=== PATIENT | male | born 1960 | race Caucasian/White ===

== ENCOUNTER 2023-03-10 15:40 | Outpatient (CLI) | payer OTHER, SELFPAY ==
[2023-03-10 16:01] LABS: Hematocrit 41.8 % (42.0-52.0); Hemoglobin 13.8 g/dL (14.0-18.0); Mean Corpuscular Hemoglobin 32.2 pg (26-34); Mean Corpuscular Volume 97.7 fl (80-100); Mean Platelet Volume 10.1 fl (7.4-10.4); Platelet Count Result 184 k/mm3 (150-375); Red Blood Count 4.28 M/mm3 (4.6-6.20); White Blood Count 11.1 K/mm3 (4.5-10.0)
[2023-03-10 16:11] LABS: Atypical Lymphocytes Present; Giant Platelets Present; Lymphocytes Absolute Manual 8.21 K/mm3 (1.1-4.5); Monocytes Absolute Manual 0.11 K/mm3 (0.1-0.90); Monocytes Percent Manual 1 % (3-9); Neutrophils Percent Manual 25 % (46-73); Platelet Estimate Adequate (Adequate); Schistocytes None Seen (NORMAL); Total Cells Counted 100
[2023-03-10 16:29] LABS: Alanine Aminotransferase 25 U/L (6-50); Albumin Level 4.4 g/dL (3.5-5.1); Alkaline Phosphatase 96 U/L (38-126); Anion Gap 9 mmol/L (8-16); Aspartate Amino Transferase 28 U/L (17-59); Bilirubin,Total 0.6 mg/dL (0.2-1.3); Blood Urea Nitrogen 18 mg/dL (9-20); Carbon Dioxide 30 mmol/L (22-30); Chloride 100 mmol/L (98-107); Estimated Glomerular Filt Rate 56; Glucose 112 mg/dL (65-110); Potassium 4.6 mmol/L (3.4-5.0); Sodium 139 mmol/L (137-145)
== END 2023-03-10 15:41 | disposition home or self-care (01) ==
PROVIDERS: Visit Provider Internal Medicine Hematology & Oncology
DX: C91.10 Chronic lymphocytic leukemia of B-cell type not having achieved remission (principal); D3A.8 Other benign neuroendocrine tumors
CPT/HCPCS: 36415; 80053; 85025

== ENCOUNTER 2023-03-19 15:40 | Outpatient (CLI) | payer OTHER, SELFPAY ==
[2023-03-31 17:23] LABS: Serotonin 47 ng/mL (56-244)
== END 2023-03-19 15:41 | disposition home or self-care (01) ==
LOC: ANHLAB 15:42
PROVIDERS: Visit Provider Internal Medicine Hematology & Oncology
DX: C7A.8 Other malignant neuroendocrine tumors (principal)
CPT/HCPCS: 36415; 84260

== ENCOUNTER 2023-03-31 15:23 | Outpatient (CLI) | payer OTHER, SELFPAY | END 2023-03-31 15:24 | disposition home or self-care (01) | LOC: ANHLAB 15:26 | PROVIDERS: Visit Provider Internal Medicine Hematology & Oncology | DX: C91.10 Chronic lymphocytic leukemia of B-cell type not having achieved remission (principal); C7A.8 Other malignant neuroendocrine tumors | CPT/HCPCS: 36415; 86316; 88184 ==

== ENCOUNTER 2023-10-16 00:37 | Day surgery (SDC) | payer OTHER, SELFPAY ==
[2023-10-05 15:12] VITALS: BMI 27.4
--- NOTE | 2023-10-14 09:46 | SUR.PREOP ---
Patient called regarding upcoming procedure. Reviewed preop instructions, appointment times, and procedure prep.
[2023-10-16 07:44] VITALS: BP 127/81; PULSE 88; RESP 18; TEMP 36.7; O2SAT 100; BMI 26.9
[2023-10-16] MEDS: LACTATED RINGERS 1,000 ML 150 ML IV CONT (08:00)
--- NOTE | 2023-10-16 08:00 | P.HP_ITS ---
History of Present Illness History of Present Illness Consent: Risks, benefits, and alternatives have been discussed and questions answered. Patient agrees to proceed with procedure. Chief complaint: Fam Hx of Colon Ca,neuroendocrine malignancy Narrative: Eran Alves is a 62 year old male Presents for should colonoscopy. Patient's father had colon cancer for this reason patient referred for neoplasia screening colonoscopy. 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 Follow-up endoscopy revealed complete excision later that year. Patient reports his current weight appetite and bowel movements are normal. He denies abdominal pain. He denies bleeding. He is followed by Dr. Hawthorne in oncology for CLL , currently stable. Review of Systems Review of Systems: Review of systems is noncontributory. [facility] Social History Social History Smoking status: Never smoker Alcohol use details: rarely Substance use type: does not use Living arrangements: with family Spiritual care concerns: No Meds Home Medications and Allergies Home Medications Medication Instructions Recorded Confirmed Type naproxen sodium 220 mg capsule 220 mg PO QID PRN Pain 10/06/23 10/16/23 History (Aleve) Allergies Allergy/AdvReac Type Severity Reaction Status Date / Time No Known Allergies Allergy Verified 10/16/23 07:43 Vital Signs Vital Signs - 24 hr 10/16/23 07:44 Temperature 98.0 F Pulse Rate 88 Respiratory Rate 18 Blood Pressure 127/81 Pulse Oximetry 100 Oxygen Delivery Room Air Exam Narrative: Physical exam reveals patient to be alert. Vital signs stable. HEENT exam is unremarkable. Patient is anicteric. Lungs are clear to auscultation and percussion. Heart is without murmur or extra sounds. Abdomen bowel sounds are present soft nontender with no organomegaly. Digital external rectal exam is normal. Assessment and Plan Assessment and plan (1) Family history of colon cancer in father: Code(s): Z80.0 - Family history of malignant neoplasm of digestive organs Status: Acute Assessment and Plan: Patient's father had colon cancer. For this reason screening exam at least every 5 years is encouraged. 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
--- NOTE | 2023-10-16 08:31 | P.PNAN_ITS ---
Anes - Initial Pre Proc Eval Procedure: Operation Date: 10/16/23 08:30 Proposed Procedures p Colonoscopy - Srini Mccord MD Date/Time: 10/16/23 08:31 Surgeon: Srini Mccord MD Pre Op Diagnosis: Fam Hx of Colon Ca,neuroendocrine malignancy Patient Data Age: 62 Gender: M Height: 1.73 m Weight: 80.4 kg Last Vital Signs Temp 98.0 F 10/16/23 07:44 Pulse 88 10/16/23 07:44 Resp 18 10/16/23 07:44 BP 127/81 10/16/23 07:44 Pulse Ox 100 10/16/23 07:44 O2 Del Method Room Air 10/16/23 07:44 Allergies Allergy/AdvReac Type Severity Reaction Status Date / Time No Known Allergies Allergy Verified 10/16/23 07:43 Home Medications Medication Instructions Recorded Confirmed Type naproxen sodium 220 mg capsule 220 mg PO QID PRN Pain 10/06/23 10/16/23 History (Aleve) Patient hx anesthesia problems: none Family hx anesthesia problems: none Results Review: All pre-operative results and documents have been reviewed as part of the pre- operative evaluation. PMFSH Social History Social History Smoking status: Never smoker Alcohol use details: rarely Substance use type: does not use Living arrangements: with family Spiritual care concerns: No Anes - Eval Final PreProcedure Day of Procedure 10/16/23 08:31 Patient weight: normal Heart: regular rate and rhythm Lungs: clear to auscultation Airway: Mallampati scale class II Neurological: alert and oriented Last oral intake: >/= 8 hours ASA classification: II Emergent: no Anesthetic plan: proceed Anesthesia type and monitoring: general GIVS and standard monitoring Results Review: All pre-operative results and documents have been reviewed as part of the pre- operative evaluation. Informed Consent: The patient's anesthetic plan and its attendant risks and benefits were discussed with the patient/family/POA. Questions were solicited and answers provided to the satisfaction of the patient/family/POA.
[2023-10-16 08:56] VITALS: BP 109/68; PULSE 62; RESP 17; O2SAT 98
[2023-10-16 09:06] VITALS: BP 113/67; PULSE 61; RESP 22; O2SAT 98
[2023-10-16 09:16] VITALS: BP 114/82; PULSE 62; RESP 25; O2SAT 98
== END 2023-10-16 09:29 | disposition home or self-care (01) ==
PROVIDERS: Visit Provider Internal Medicine Gastroenterology
PROC: 0DJD8ZZ Inspection of Lower Intestinal Tract, Via Natural or Artificial Opening Endoscopic (ICD-10-PCS; CPT 45378; principal; 2023-10-16 08:30)
DX: Z12.11 Encounter for screening for malignant neoplasm of colon (principal); K63.5 Polyp of colon; C91.10 Chronic lymphocytic leukemia of B-cell type not having achieved remission; Z80.0 Family history of malignant neoplasm of digestive organs; Z85.030 Personal history of malignant carcinoid tumor of large intestine
CPT/HCPCS: 45380; 88305; J7120

== ENCOUNTER 2023-10-26 15:34 | Outpatient (CLI) | payer OTHER, SELFPAY ==
[2023-10-26 16:04] LABS: Basophils Absolute Auto 0.1 K/mm3 (0.0-0.1); Basophils Percent Auto 0.5 % (0.2-1.2); Eosinophils Absolute Auto 0.1 K/mm3 (0-0.3); Eosinophils Percent Auto 0.7 % (0-4.4); Hematocrit 40.4 % (42.0-52.0); Hemoglobin 13.9 g/dL (14.0-18.0); Immature Granulocyte Absolute 0.02 K/mm3 (0.00-0.031); Immature Granulocyte Percent A 0.2 % (0-0.5); Lymphocytes Absolute Auto 8.16 K/mm3 (0.9-3.2); Lymphocytes Percent Auto 73.9 % (18.3-44.2); Mean Corpuscular HGB Conc 34.4 g/dl (32-36); Mean Corpuscular Hemoglobin 32.9 pg (26-34); Mean Corpuscular Volume 95.5 fl (80-100); Monocytes Absolute Auto 0.5 K/mm3 (0.1-0.6); Monocytes Percent Auto 4.5 % (2.6-8.5); Neutrophils Absolute Auto 2.2 K/mm3 (1.3-6.7); Neutrophils Percent Auto 20.2 % (45.5-73.1); Platelet Count Result 188 k/mm3 (150-375); Red Blood Count 4.23 M/mm3 (4.6-6.20); Red Cell Distribution Width 11.9 % (11.5-14.5)
[2023-10-26 16:13] LABS: Atypical Lymphocytes Present; Platelet Estimate Adequate (Adequate); Schistocytes None Seen (NORMAL)
[2023-10-26 17:44] LABS: Alanine Aminotransferase 39 U/L (6-50); Albumin Level 4.3 g/dL (3.5-5.1); Alkaline Phosphatase 91 U/L (38-126); Anion Gap 7 mmol/L (8-16); Aspartate Amino Transferase 36 U/L (17-59); Bilirubin,Total 0.7 mg/dL (0.2-1.3); Blood Urea Nitrogen 15 mg/dL (9-20); Calcium 9.4 mg/dL (8.4-10.2); Carbon Dioxide 30 mmol/L (22-30); Chloride 101 mmol/L (98-107); Estimated Glomerular Filt Rate 56; Glucose 100 mg/dL (65-110); Potassium 4.1 mmol/L (3.4-5.0); Sodium 138 mmol/L (137-145)
[2023-11-09 11:08] LABS: Serotonin 186 ng/mL (56-244)
== END 2023-10-26 15:35 | disposition home or self-care (01) ==
LOC: ANHLAB 15:36
PROVIDERS: Visit Provider Internal Medicine Hematology & Oncology
DX: C7A.8 Other malignant neuroendocrine tumors (principal); C91.10 Chronic lymphocytic leukemia of B-cell type not having achieved remission
CPT/HCPCS: 36415; 80053; 84260; 85025; 88184

== ENCOUNTER 2024-04-21 15:33 | Outpatient (CLI) | payer OTHER, SELFPAY ==
[2024-04-21 15:54] LABS: Hematocrit 40.2 % (42.0-52.0); Hemoglobin 13.4 g/dL (14.0-18.0); Mean Corpuscular HGB Conc 33.3 g/dl (32-36); Mean Corpuscular Hemoglobin 32.4 pg (26-34); Mean Corpuscular Volume 97.1 fl (80-100); Mean Platelet Volume 10.1 fl (7.4-10.4); Platelet Count Result 182 k/mm3 (150-375); Red Blood Count 4.14 M/mm3 (4.6-6.20); Red Cell Distribution Width 12.1 % (11.5-14.5); White Blood Count 11.4 K/mm3 (4.5-10.0)
[2024-04-21 16:05] LABS: Atypical Lymphocytes Present; Giant Platelets Present; Lymphocytes Absolute Manual 7.63 K/mm3 (1.1-4.5); Monocytes Absolute Manual 0.57 K/mm3 (0.1-0.90); Monocytes Percent Manual 5 % (3-9); Neutrophils Percent Manual 28 % (46-73); Platelet Estimate Adequate (Adequate); Schistocytes None Seen; Total Cells Counted 100
[2024-04-21 17:44] LABS: Alanine Aminotransferase 27 U/L (6-50); Albumin Level 4.1 g/dL (3.5-5.1); Alkaline Phosphatase 92 U/L (38-126); Anion Gap 5 mmol/L (4-12); Aspartate Amino Transferase 27 U/L (17-59); Bilirubin,Total 0.7 mg/dL (0.2-1.3); Blood Urea Nitrogen 23 mg/dL (9-20); Calcium 8.9 mg/dL (8.4-10.2); Carbon Dioxide 28 mmol/L (22-30); Chloride 103 mmol/L (98-107); Estimated Glomerular Filt Rate 56; Glucose 99 mg/dL (65-110); Potassium 4.1 mmol/L (3.4-5.0); Sodium 136 mmol/L (137-145)
[2024-04-29 14:57] LABS: Serotonin 127 ng/mL (56-244)
== END 2024-04-21 15:34 | disposition home or self-care (01) ==
LOC: ANHLAB 15:36
PROVIDERS: Visit Provider Internal Medicine Hematology & Oncology
DX: C7A.8 Other malignant neuroendocrine tumors (principal)
CPT/HCPCS: 36415; 80053; 84260; 85025; 86316

== ENCOUNTER 2024-10-19 15:40 | Outpatient (CLI) | payer OTHER, SELFPAY ==
[2024-10-19 15:58] LABS: Basophils Absolute Auto 0.1 K/mm3 (0.0-0.1); Basophils Percent Auto 0.6 % (0.2-1.2); Eosinophils Absolute Auto 0.1 K/mm3 (0-0.3); Eosinophils Percent Auto 1.6 % (0-4.4); Hematocrit 37.8 % (42.0-52.0); Hemoglobin 12.7 g/dL (14.0-18.0); Immature Granulocyte Absolute 0.02 K/mm3 (0.00-0.031); Immature Granulocyte Percent A 0.2 % (0-0.5); Lymphocytes Absolute Auto 5.66 K/mm3 (0.9-3.2); Lymphocytes Percent Auto 67.5 % (18.3-44.2); Mean Corpuscular HGB Conc 33.6 g/dl (32-36); Mean Corpuscular Hemoglobin 32.6 pg (26-34); Mean Corpuscular Volume 96.9 fl (80-100); Mean Platelet Volume 9.6 fl (7.4-10.4); Monocytes Absolute Auto 0.5 K/mm3 (0.1-0.6); Monocytes Percent Auto 5.5 % (2.6-8.5); Neutrophils Absolute Auto 2.1 K/mm3 (1.3-6.7); Neutrophils Percent Auto 24.6 % (45.5-73.1); Platelet Count Result 181 k/mm3 (150-375); Red Cell Distribution Width 12.2 % (11.5-14.5); White Blood Count 8.4 K/mm3 (4.5-10.0)
[2024-10-19 16:05] LABS: Atypical Lymphocytes Present; Platelet Estimate Adequate (Adequate); Schistocytes None Seen
[2024-10-19 18:39] LABS: Alanine Aminotransferase 52 U/L (6-50); Albumin Level 3.8 g/dL (3.5-5.1); Alkaline Phosphatase 101 U/L (38-126); Anion Gap 6 mmol/L (4-12); Aspartate Amino Transferase 62 U/L (17-59); Bilirubin,Total 0.7 mg/dL (0.2-1.3); Blood Urea Nitrogen 22 mg/dL (9-20); Calcium 8.4 mg/dL (8.4-10.2); Carbon Dioxide 29 mmol/L (22-30); Chloride 102 mmol/L (98-107); Estimated Glomerular Filt Rate 51; Glucose 128 mg/dL (65-110); Potassium 4.4 mmol/L (3.4-5.0); Sodium 137 mmol/L (137-145)
== END 2024-10-19 15:41 | disposition home or self-care (01) ==
LOC: ANHLAB 15:41
PROVIDERS: Visit Provider Internal Medicine Hematology & Oncology
DX: C7A.8 Other malignant neuroendocrine tumors (principal)
CPT/HCPCS: 36415; 80053; 84260; 85025; 86316

== ENCOUNTER 2025-02-01 15:41 | Outpatient (CLI) | payer OTHER, SELFPAY ==
[2025-02-01 15:57] LABS: Basophils Absolute Auto 0.1 K/mm3 (0.0-0.1); Basophils Percent Auto 0.7 % (0.2-1.2); Eosinophils Absolute Auto 0.3 K/mm3 (0-0.3); Eosinophils Percent Auto 2.4 % (0-4.4); Hematocrit 40.9 % (42.0-52.0); Hemoglobin 13.8 g/dL (14.0-18.0); Immature Granulocyte Absolute 0.03 K/mm3 (0.00-0.031); Immature Granulocyte Percent A 0.3 % (0-0.5); Lymphocytes Absolute Auto 6.71 K/mm3 (0.9-3.2); Mean Corpuscular HGB Conc 33.7 g/dl (32-36); Mean Corpuscular Hemoglobin 32.2 pg (26-34); Mean Corpuscular Volume 95.6 fl (80-100); Mean Platelet Volume 10.1 fl (7.4-10.4); Monocytes Absolute Auto 0.6 K/mm3 (0.1-0.6); Monocytes Percent Auto 5.8 % (2.6-8.5); Neutrophils Absolute Auto 2.7 K/mm3 (1.3-6.7); Neutrophils Percent Auto 25.8 % (45.5-73.1); Platelet Count Result 183 k/mm3 (150-375); Red Blood Count 4.28 M/mm3 (4.6-6.20); Red Cell Distribution Width 12.2 % (11.5-14.5); White Blood Count 10.3 K/mm3 (4.5-10.0)
[2025-02-01 16:01] LABS: Platelet Estimate Adequate (Adequate); Schistocytes None Seen
[2025-02-01 16:04] LABS: Atypical Lymphocytes Present
[2025-02-01 16:41] LABS: Iron 87 ug/dL (49-181)
[2025-02-01 16:50] LABS: Percent Iron Saturation 25 % (20-50)
--- OUTSIDE RECORDS SUMMARY | 2025-02-01 17:19 | XMS_ITS | Clinical Summary ---
Author Organization [facility] [employer] Address [address] [place] [address] Care Team Providers Care Cook Tortilla Name Role Phone Betsy Rossi MD Primary Care Provider [phone] Allergies No known active allergies Medications multivit-min/FA/lyc open/lutein (MEN 50 PLUS MULTIVITAMIN ORAL) 05/30/2021 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 Rectal bleeding 09/13/2019 Family history of colon cancer 08/13/2018 Encounters Date Type Department Care Team Description 01/17/2025 External Device Data ST[facility] ABSTRACTION Provider, Abstract 12/21/2024 External Device Data [facility] ABSTRACTION Provider, Abstract 12/20/2024 External Device Data [facility] ABSTRACTION Provider, Abstract 12/13/2024 External Device Data ST[facility] ABSTRACTION Provider, Abstract 11/07/2024 2:15 PM LEARNING DISABILITIES TEACHER Office Visit [facility] Oncology and Hematology - [place] [address] [place] [address] Desmond Hawthorne MD Neuroendocrine malignancy (CMS/HCC) (Primary Dx); Chronic anemia 11/04/2024 Orders Only [facility] Oncology and Hematology [place] [address] [place] [address] Desmond Hawthorne MD from Last 3 Months Immunizations Immunization Administration Dates Next Due (ADACEL/BOOSTRIX)(10 YR UP) TDAP VACCINE, 0.5ML, IM 09/13/2019 (PNEUMOVAX 23)(50 YRS UP) PN EUMOCOCCAL POLYSACCHARIDE (PPV23) 0.5 ML, IM 09/23/2018 (SHINGRIX)(50 YRS UP) ZOSTER VACCINE RECOMBINANT, 0.5 ML, IM 07/31/2021,05/29/2021 INFLUENZA VACCINE QUADRIVALE NT 3 YR UP PF IM 09/11/2017 INFLUENZA VACCINE QUADRIVALENT 6 MOS UP IM 08/28,08/31/2019,09/02/2018 INFLUENZA VACCINE QUADRIVALE NT 6 MOS UP PF IM 09/04/2023,08/28/2020 INFLUENZA VACCINE TRIVALENT SPLIT VIRUS, (6 MOS UP), 0.5ML (PF), IM 09/07/2024 Family History Medical History Relation Name Comments No Known Problems Brother No Known Problems Daughter Colon Cancer Father cause of Stroke Maternal Grandfather Unknown Maternal Grandmother Lymphoma Mother Migraines Mother Stroke Mother Unknown Paternal Grandfather Diabetes Paternal Grandmother No Known Problems Son Relation Name Status Comments Brother Alive Daughter Alive Father Maternal Grandfather Maternal Grandmother Mother Paternal Grandfather Paternal Grandmother Son Alive Social History Tobacco Use Types Packs/Day Years Used Date Smoking Tobacco: Never Smokeless Tobacco: Never Tobacco Cessation:Counseling Given: Not Answered Alcohol Use Standard Drinks/Week Comments Yes 0 (1 standard drink = 0.6 oz pur e alcohol) rarely Sex and Gender Information Value Date Recorded Sex Assigned at Not on file Legal Sex Male 12:10 PM CDT Gender Identity Not on file Sexual Orientation Not on file Last Filed Vital Signs Vital Sign Reading Time Taken Comments Blood Pressure 154/96 11/07/2024 2:16 PM LEARNING DISABILITIES TEACHER Pulse 72 11/07/2024 2:10 PM LEARNING DISABILITIES TEACHER Temperature 36.8 C (98.2 F) 11/07/2024 2:10 PM LEARNING DISABILITIES TEACHER Respiratory Rate 16 11/07/2024 2:10 PM LEARNING DISABILITIES TEACHER Oxygen Saturation 95% 11/07/2024 2:10 PM LEARNING DISABILITIES TEACHER Inhaled Oxygen Concentration - - Weight 85.6 kg (188 lb 12.8 oz) 11/07/2024 2:10 PM LEARNING DISABILITIES TEACHER Height 172.7 cm (5' 8 ) 07/22/2022 9:32 AM CDT Body Mass Index 28.71 07/22/2022 9:32 AM CDT Plan of Treatment Upcoming Encounters Date Type Department Care Team (Late st Contact Info) Description 02/14/2025 3:45 PM CDT Office Visit [facility] Oncology and Hematology [facility] [address] [facility] [address] [place] [address] Desmond Hawthorne MD [address] [place] [address] Health Maintenance Due Date Last Done Comments Pre-Diabetes and Diabetes Screening 1960 FIT-DNA Q 3 years 2004 Flex Sig/CT Colonography Q 5 years 2004 PNEUMOCOCCAL VACCINE 50+ YEA RS (2 of 2 - PCV) 09/23/2019 09/23/2018 RSV VACCINE (60+ or ) (1 - Risk 60-74 years 1-dose series) 2019 FIT/FOBT Q 1 year 09/13/2020 09/13/2019 COLORECTAL SCREENING 04/15/2024 10/16/2023, 11/07/2019, 09/29/2019, Additional history exists Colorectal Cancer Screening 04/15/2024 Preventative Visit- Commercial 11/30/2024 DTAP/TDAP/TD VACCINES (2 - T d or Tdap) 09/13/2029 09/13/2019 ZOSTER VACCINE Completed 07/31/2021, 05/29/2021 INFLUENZA VACCINE Completed 09/07/2024, , 08/28/2021, Additional history exists Procedures Procedure Name Priority Date/Time Associated Diagnosis Comments COLONOSCOPY REPORT Routine 10/16/2023 11 :38 AM LEARNING DISABILITIES TEACHER POC OCCULT BLOOD 1 CARD Routine 09/13/2019 11:59 AM CDT Rectal bleeding from Last 3 Months or Most Recently Relevant to Health Maintenance Results * COLONOSCOPY REPORT (10/16/2023 11:38 AM LEARNING DISABILITIES TEACHER) us Desmond Hawthorne MD GI PROCEDURE ORDERABLES Final R esult * (ABNORMAL) POC OCCULT BLOOD 1 CARD (09/13/2019 11:59 AM CDT) OCCULT BLOOD 1 CARD POC Positive(A ) Negative [facility] [place] QC Pass Pass [facility] CARD LOT NUMBER POC [id number] [facility] [place] C[place] EXP[place] DATE POC 01/2020 [facility] [place] DEVELOPER [place] NUMBER POC [id number] [facility] DEVELOPER EXPIRATION DATE POC 04/2022 [facility] [employer] STOOL SPECIMEN / Unknown 09/13/2019 11:59 AM CDT us Melida Zavala NP POINT OF CARE TESTING F inal Result [facility] CLIA# [id number] [address] [address] from Last 3 Months or Most Recently Relevant to Health Maintenance Insurance ALLEGIANCE OPEN ACCESS ALLEGIANCE OPEN ACCESS * Guarantor: [employer] Account Type Relation to Patient Date of Phone Billing Address Corporate Employer ATTN: ELIZABETH JOYNER [address] [address] Advance Directives For more information, please contact: [phone] * Full Code (Latest Code Status on File) Date Activated Date Inactivated Comments 11/07/2019 11:56 AM 11/07/2019 5:42 PM Care Teams Cook Tortilla Relationship Specialty Start Date End Date Betsy Rossi MD [facility] [place] [address] PCP - General Family Practice 10/06/22
--- OUTSIDE RECORDS SUMMARY | 2025-02-01 17:19 | XMS_ITS | Referral Summary ---
Author Organization [facility] [address] [facility] Address [address] [place] [address] Care Team Providers Care Embosser Apprentice Name Role Phone No, Physician Primary Care Provider [phone] Allergies No known active allergies Medications No known medications Active Problems Problem Noted Date Diagnosed Date Elevated LDL cholesterol level 02/12/2021 CASTILLO (dyspnea on exertion) 02/12/2021 Elevated serum creatinine 02/12/2021 CLL (chronic lymphocytic leukemia) 01/22/2021 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 Social History Tobacco Use Types Packs/Day Years Used Date Smoking Tobacco: Never Personal Safety Answer Date Recorded Getting School Help Needed Not on file 01/30 Sex and Gender Information Value Date Recorded Sex Assigned at Not on file Legal Sex Male 12:14 PM CDT Gender Identity Not on file Sexual Orientation Not on file Last Filed Vital Signs Vital Sign Reading Time Taken Comments Blood Pressure 128/78 06/21/2022 2:38 PM CDT Pulse 82 06/21/2022 2:38 PM CDT Temperature 36.2 C (97.2 F) 06/21/2022 2:38 PM CDT Respiratory Rate 18 06/21/2022 2:38 PM CDT Oxygen Saturation 96% 06/21/2022 2:38 PM CDT Inhaled Oxygen Concentration - - Weight 74.8 kg (165 lb) 06/21/2022 2:38 PM CDT Height 172.7 cm (5' 8 ) 06/21/2022 2:38 PM CDT Body Mass Index 25.09 06/21/2022 2:38 PM CDT Plan of Treatment Not on file Insurance [employer] ALLEGIANCE Care Teams Embosser Apprentice Relationship Specialty Start Date End Date No, Physician PCP - General 06/21/22
--- OUTSIDE RECORDS SUMMARY | 2025-02-01 17:19 | XMS_ITS | Clinical Summary ---
Author Organization [facility] [address] [facility] Address [address] [place] [address] Care Team Providers Care Bench Press Operator Name Role Phone No, Physician Primary Care Provider [phone] Allergies No known active allergies Medications No known medications Active Problems Problem Noted Date Diagnosed Date Elevated LDL cholesterol level 02/12/2021 CASTILLO (dyspnea on exertion) 02/12/2021 Elevated serum creatinine 02/12/2021 CLL (chronic lymphocytic leukemia) 01/22/2021 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 Surgical History Surgery Date Site/Laterality Comments COLON SURGERY Medical History Medical History Date Comments Hyperlipidemia Social History Tobacco Use Types Packs/Day Years Used Date Smoking Tobacco: Never Personal Safety Answer Date Recorded Getting School Help Needed Not on file 01/30 Sex and Gender Information Value Date Recorded Sex Assigned at Not on file Legal Sex Male 12:14 PM CDT Gender Identity Not on file Sexual Orientation Not on file Obstetrics History Last Filed Vital Signs Vital Sign Reading [...] 06/21/2022 2:38 PM CDT Plan of Treatment Health Maintenance Due Date Last Done Comments Colon Cancer Screening-Colonoscopy 1960 Depression Screening 1959 Fall Risk Assessment 1959 Hepatitis C Screening 1960 Prostate Cancer Screening-PSA 1959 Hepatitis B Screening 1977 Pneumococcal vaccine 65+ (2 of 2 - PCV) 09/23/2019 09/23/2018 Covid-19 Vaccine (4 - 2023-2 5 season) 2024 11/09/2021, 03/17/2021, 02/24/2021 Influenza Vaccine (#1) 2024 , 08/28/2020, 08/31/2019, Additional history exists Abdominal Aortic Aneurysm (A AA) Screen 2024 Well Visit 65+ 2024 DTaP/Tdap/Td Vaccine (2 - Td or Tdap) 09/13/2029 09/13/2019 Zoster Vaccine Completed 07/31/2021, 05/29/2021 Insurance [employer] ALLEGIANCE Care Teams Bench Press Operator Relationship Specialty Start Date End Date No, Physician PCP - General 06/21/22
[2025-02-01 17:54] LABS: Folic Acid 18.2 ng/mL (2.76->20)
== END 2025-02-01 15:42 | disposition home or self-care (01) ==
PROVIDERS: Visit Provider Internal Medicine Hematology & Oncology
DX: C7A.8 Other malignant neuroendocrine tumors (principal)
CPT/HCPCS: 36415; 82607; 82728; 82746; 83540; 83550; 84260; 85025; 86316

== ENCOUNTER 2025-02-14 15:34 | Outpatient (CLI) | payer OTHER, SELFPAY ==
[2025-02-14 15:48] LABS: Blood Urea Nitrogen 28 mg/dL (8-26); Carbon Dioxide 26 mmol/L (22-30); Chloride 102 mmol/L (98-109); Estimated Glomerular Filt Rate 51; Glucose 111 mg/dL (70-105); Ionized Calcium (POC) 1.21 mmol/L (1.11-1.31); Potassium 4.3 mmol/L (3.5-4.9); Sodium 139 mmol/L (138-146)
[2025-02-14 16:29] LABS: Alanine Aminotransferase 27 U/L (6-50); Albumin Level 4.3 g/dL (3.5-5.1); Alkaline Phosphatase 93 U/L (38-126); Anion Gap 8 mmol/L (4-12); Aspartate Amino Transferase 40 U/L (17-59); Bilirubin,Total 0.4 mg/dL (0.2-1.3); Blood Urea Nitrogen 30 mg/dL (9-20); Calcium 9.1 mg/dL (8.4-10.2); Carbon Dioxide 28 mmol/L (22-30); Chloride 101 mmol/L (98-107); Estimated Glomerular Filt Rate 55; Glucose 115 mg/dL (65-110); Potassium 4.5 mmol/L (3.4-5.0); Sodium 137 mmol/L (137-145)
--- OUTSIDE RECORDS SUMMARY | 2025-02-14 17:30 | XMS_ITS | Encounter Summary ---
Author Organization [facility] Address [address] [place] [address] Care Team Providers Care Beaming Inspector Name Role Phone Betsy Rossi MD Primary Care Provider [phone] Reason for Visit * Reason Comments Cancer Follow Up Encounter Details Date Type Department Care Team (Late st Contact Info) Description 02/14/2025 3:45 PM CDT Office Visit [facility] Oncology and Hematology - [place] [address] [facility] [address] [place] [address] Desmond Hawthorne MD [address] [place] [address] Neuroendocrine malignancy (CMS/HCC) (Primary Dx) Social History Tobacco Use Types Packs/Day Years Used Date Smoking Tobacco: Never Smokeless Tobacco: Never Alcohol Use Standard Drinks/Week Comments Yes 0 (1 standard drink = 0.6 oz pur e alcohol) rarely Sex and Gender Information Value Date Recorded Sex Assigned at Not on file Legal Sex Male 12:10 PM CDT Gender Identity Not on file Sexual Orientation Not on file documented as of this encounter Last Filed Vital Signs Vital Sign Reading Time Taken Comments Blood Pressure 137/89 02/14/2025 3:45 PM CDT Pulse 71 02/14/2025 3:45 PM CDT Temperature 36.7 C (98 F) 02/14/2025 3:45 PM CDT Respiratory Rate 16 02/14/2025 3:45 PM CDT Oxygen Saturation 96% 02/14/2025 3:45 PM CDT Inhaled Oxygen Concentration - - Weight 84.5 kg (186 lb 3.2 oz) 02/14/2025 3:45 P M CDT Height - - Body Mass Index 28.31 07/22/2022 9:32 AM CDT documented in this encounter Progress Notes * Desmond Hawthorne MD - 02/14/2025 4:13 PM CDT HEMATOLOGY / ONCOLOGY PROGRESS NOTE Patient Identification: Name: Eran Alves Age: 64 y.o. Sex: male : 1960 DIAGNOSIS Well-differentiated neuroendocrine tumor status post colonoscopy on September 29, 2019. Repeat colonoscopy November 07, 2019 showed no evidence of malignancy. Chronic lymphocytic leukemia status post flow cytometric analysis performed on October 26, 2023. CURRENT TREATMENT Surveillance TREATMENT HISTORY Colonoscopy done on October 16 showed hyperplastic polyps. SUBJECTIVE Patient came to the office for follow-up visit. He denies any night sweats fever chills and weight loss. Denies any new lumps bumps in lymphadenopathy. No other new complaints. Review of system Constitutional: denies fevers, sweats, denies any tiredness and fatigue, weight and appetite stable HEENT: denies sinus congestion, hearing or vision problems Respiratory: denies cough, dyspnea, wheeze Cardiovascular: denies chest pain, exertional chest pressure/discomfort, nausea, syncope, shortnessof breath GI: denies constipation, diarrhea, dsyphagia, reflux symptoms, vomiting, melena : denies dysuria, frequency, incontinence, urgency Integumentary system: no lymphadenopathy, sweats, flushing Musculoskeletal: denies: myalgia, arthralgia Neurological: denies blurry or disturbed vision, numbness/weakness, dizziness Skin: No lumps, bumps or rashes. 12 point review of system was reviewed Objective: Vital signs in last 24 hours: As per nursing note Exam: General appearance: alert, cooperative, no distress, appears stated age Head: normocephalic, without obvious abnormality, atraumatic Eyes: conjunctivae/corneas clear, EOM's intact Ears: normal external ear canals AU Nose: Nares normal. Septum midline. Mucosa normal. No drainage or sinus tenderness Throat: Lips, mucosa, and tongue normal. Teeth and gums normal Neck: supple, symmetrical, trachea midline. Lungs: clear to auscultation bilaterally Heart: regular rate and rhythm, S1, S2 normal, no murmur, click, rub or gallop Abdomen: soft, non-tender. Bowel sounds normal. No masses, No organomegaly Extremities: extremities normal, atraumatic, no cyanosis or edema Skin: Skin color, texture, turgor normal. No rashes or lesions Lymph nodes: No palpable lymphadenopathy Neuro: No obvious focal deficit Exam as above PATH LABS CBC from December 27, 2019 showed WBC 12.5 hemoglobin 13.4 platelet 221,000 lymphocytes 79% neutrophils 16% chromogranin 65 serotonin 124 Labs from March 10 showed creatinine 1.3 total bilirubin 0.6 WBC 11.1 hemoglobin 13.8 platelet 184,000 neutrophils 25% lymphocytes 74% Labs from October 26 showed WBC 11.0 hemoglobin 13.9 platelet 188,000 neutrophils 20% Vercyte 73% creatinine 1.3 Labs from April 21 showed WBC 11.4 hemoglobin 13.4 platelet 1 82,000 lymphocyte 28% lymphocyte 67% creatinine 1.3 serotonin 127 chromogranin 186 Labs from October 19 showed ferritin 902 chromogranin 308 hemoglobin 12.7 WBC 8.4 platelet 181,024% neutrophils 67% lymphocytes creatinine 1.4 GFR 51 AST 62 ALT 52 Labs from February 01 showed WBC 10.3 hemoglobin 13.8 platelet 183,000 neutrophils 25% lymphocyte 65% creatinine 1.4 iron 87 iron saturation 25 ferritin 51 vitamin B12 734 Chromogranin 170 serotonin 66 Assessment: Plan: Patient Active Problem List Diagnosis Date Noted Adjustment disorder with mixed anxiety and depressed mood 08/27/2022 Elevated LDL cholesterol level 02/12/2021 Elevated serum creatinine 02/12/2021 CASTILLO (dyspnea on exertion) 02/12/2021 CLL (chronic lymphocytic leukemia) (CMS/HCC) 01/22/2021 Benign neuroendocrine neoplasm (CMS/HCC) 12/21/2019 Rectal bleeding 09/13/2019 Family history of colon cancer 08/13/2018 Well-differentiated neuroendocrine tumor status post colonoscopy on September 29, 2019. Colonoscopy showed adenomatous polyp as well as multiple foci of high- grade dysplasia/well-differentiated neuroendocrine tumor. Repeat colonoscopy on November 07, 2019 showed no further evidence of malignancy. Patient is asymptomatic. Labs showed normal chromogranin and serotonin. No evidence of relapse at disease. CLL. WBC stable. Patient has no lymphadenopathy on exam. No indication to treat CLL. Anemia secondary to chronic kidney disease. Iron and B12 level came back normal. Hemoglobin has improved. Elevated liver enzymes. Results are pending today. Recommended regular exercise and weight loss. Follow-up in 6 months. Follow-up in 6 months 02/14/2025 Desmond Hawthorne MD documented in this encounter Plan of Treatment Upcoming Encounters Date Type Department Care Team (Late st Contact Info) Description 08/23/2025 3:30 PM CDT Office Visit [facility] Oncology and Hematology [facility] [address] [place] [address] Desmond Hawthorne MD [address] [place] [address] Scheduled Orders Name Type Priority Associated Diagnoses Orde r Schedule CBC WITH DIFFERENTIAL Lab Stat Neuroendocrine malignancy (CMS/HCC) Expected: 08/17/2025, Expires: 02/14/2026 COMPREHENSIVE METABOLIC PANEL Lab Stat Neuroendocrine malignancy (CMS/HCC) Expected: 08/17/2025, Expires: 02/14/2026 SEROTONIN LEVEL Lab Routine Neuroendocrine malignancy (CMS/HCC) Expected: 08/17/2025, Expires: 02/14/2026 CHROMOGRANIN A Lab Routine Neuroendocrine malignancy (CMS/HCC) Expected: 08/17/2025, Expires: 02/14/2026 documented as of this encounter Visit Diagnoses Diagnosis Neuroendocrine malignancy (CMS/HCC)- Primary Other malignant neoplasm without specification of site documented in this encounter Additional Health Concerns Assessment Noted Time PHQ-9 Depression Total Score: 2 10/06/20 3:00 PM HAND SIZER documented as of this encounter Care Teams Beaming Inspector Relationship Specialty Start Date End Date Betsy Rossi MD [address] [place] [address] PCP - General Family Practice 10/06/22 documented as of this encounter
--- OUTSIDE RECORDS SUMMARY | 2025-02-14 17:30 | XMS_ITS | Clinical Summary ---
Author Organization [facility] [employer] [place] Address [address] [address] Care Team Providers Care Chronic Disease Manager Name Role Phone Betsy Rossi MD Primary Care Provider Allergies No known active allergies Medications multivit-min/FA/l ycopen/lutein (MEN 50 PLUS MULTIVITAMIN ORAL) 05/30/2021 Active TURMERIC ORAL Take by mouth daily. 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 Rectal bleeding 09/13/2019 Family history of colon cancer 08/13/2018 Encounters Date Type Department Care Team Description 02/14/2025 3:45 PM CDT Office Visit [facility] Oncology and Hematology [facility] [address] [place] [address] Desmond Hawthorne MD Neuroendocrine malignancy (CMS/HCC) (Primary Dx) 02/14/2025 Orders Only [facility] Oncology and Hematology [facility] [address] [place] [address] Desmond Hawthorne MD 02/04/2025 External Device Data STL ABSTRACTION Provider, Abstract 02/03/2025 External Device Data STL ABSTRACTION Provider, Abstract 02/02/2025 Orders Only [facility] Oncology and Hematology - [facility] [address] [place] [address] Desmond Hawthorne MD 01/17/2025 External Device Data STL ABSTRACTION Provider, Abstract 12/21/2024 External Device Data STL ABSTRACTION Provider, Abstract 12/20/2024 External Device Data STL ABSTRACTION Provider, Abstract 12/13/2024 External Device Data STL ABSTRACTION Provider, Abstract from Last 3 Months Immunizations Immunization Administration [...] oz) 02/14/2025 3:45 P M CDT Height 172.7 cm (5' 8 ) 07/22/2022 9:32 AM CDT Body Mass Index 28.31 07/22/2022 9:32 AM CDT Plan of Treatment Upcoming Encounters Date Type Department Care Team (Late st Contact Info) Description 08/23/2025 3:30 PM CDT Office Visit [facility] Oncology and Hematology [facility] [address] [facility] [address] [facility] [address] [place] [address] Desmond Hawthorne MD [address] [place] [address] Health Maintenance Due Date Last [...] Procedure Name Priority Date/Time Associated Diagnosis Comments SEROTONIN LEVEL Routine 02/01/2025 4:46 PM PUBLIC POLICY MEDIATOR CBC WITH AUTODIFFERENTIAL Routine 02/01/2025 1:40 PM PUBLIC POLICY MEDIATOR COLONOSCOPY REPORT Routine 10/16/2023 11 :38 AM PUBLIC POLICY MEDIATOR POC OCCULT BLOOD 1 CARD Routine 09/13/20 11:59 AM CDT Rectal bleeding from Last 3 Months or Most Recently Relevant to Health Maintenance Results * SEROTONIN LEVEL (02/01/2025 4:46 PM PUBLIC POLICY MEDIATOR) Blood Desmond Hawthorne MD CHEMISTRY ORDERABLES Final Resu lt * CBC WITH AUTODIFFERENTIAL (02/01/2025 1:40 PM PUBLIC POLICY MEDIATOR) Blood Desmond Hawthorne MD HEMATOLOGY ORDERABLES Final Res ult * COLONOSCOPY REPORT (10/16/2023 11:38 AM PUBLIC POLICY MEDIATOR) us Desmond Hawthorne MD GI PROCEDURE ORDERABLES Final R esult * (ABNORMAL) POC OCCULT BLOOD 1 CARD (09/13/2019 11:59 AM CDT) OCCULT BLOOD 1 CARD POC Positive(A ) Negative [facility] [place] Pass Pass [facility] [place] NUM[place] POC [id number] [facility] [place] C[place] EXPIRATION DATE POC 01/2020 [facility] [place] LOT NUMBER POC [id number] [facility] [place] EXPIRATION DATE POC 04/2022 [facility] [place] Stool STOOL SPECIMEN / Unknown 09/13/2019 11:59 AM CDT Melida Zavala NP POINT OF CARE TESTING F inal Result [facility] CLIA# [id number] [address] [place] [id number] from Last 3 Months or Most Recently Relevant to Health Maintenance Insurance ALLEGIANCE OPEN ACCESS ALLEGIANCE OPEN ACCESS * Guarantor: [employer] Account Type Relation to Patient Date of Phone Billing Address Corporate Employer ATTN: ELIZABETH JOYNER [address] [address] Advance Directives For more information, please contact: [phone] * Full Code (Latest Code Status on File) Date Activated Date Inactivated Comments 11/07/2019 11:56 AM 11/07/2019 5:42 PM Care Teams Chronic Disease Manager Relationship Specialty Start Date End Date [place] [address] PCP - General Family Practice 10/06/22
--- OUTSIDE RECORDS SUMMARY | 2025-02-14 17:30 | XMS_ITS | Encounter Summary ---
Author Organization [facility] [employer] [facility] Address [address] [place] [address] Care Team Providers Care Communications Consultant Name Role Phone Betsy Rossi MD Primary Care Provider [phone] Encounter Details Date Type Department Care Team (Late st Contact Info) Description 02/14/[address] [facility] Oncology and Hematology [address] [place] [address] [place] [address] [place] [address] [employer] [place] [address] Social History Tobacco Use Types Packs/Day Years [...] on file documented as of this encounter Plan of Treatment Upcoming Encounters Date Type Department Care Team (Late st Contact Info) Description 08/23/2025 3:30 PM CDT Office Visit [facility] Oncology and Hematology - Shahram [address] [place] [address] [place] [address] [place] [address] [employer] [address] [place] [address] documented as of this encounter Procedures Procedure Name Priority Date/Time Associated Diagnosis Comments SEROTONIN LEVEL Routine 02/01/2025 4:46 PM DATABASE MANAGER documented in this encounter Results * SEROTONIN LEVEL (02/01/2025 4:46 PM DATABASE MANAGER) Blood us Desmond Hawthorne MD CHEMISTRY ORDERABLES Final Resu lt documented in this encounter Visit Diagnoses Not on filedocumented in this encounter Additional Health Concerns Assessment Noted Time PHQ-9 Depression Total Score: 2 10/06/20 22 3:00 PM DATABASE MANAGER documented as of this encounter Care Teams Communications Consultant Relationship Specialty Start Date End Date Betsy Rossi MD [address] [place] [address] PCP - General Family Practice 10/06/22 documented as of this encounter
--- OUTSIDE RECORDS SUMMARY | 2025-02-14 17:30 | XMS_ITS | Referral Summary ---
Author Organization [facility] Address [address] [place] [address] Care Team Providers Care Facilities Plant Engineer Name Role Phone No, Physician Primary Care Provider [phone] Allergies No known active allergies Medications No [...] on file Insurance [employer] ALLEGIANCE Care Teams Facilities Plant Engineer Relationship Specialty Start Date End Date No, Physician PCP - General 06/21/22
--- OUTSIDE RECORDS SUMMARY | 2025-02-14 17:30 | XMS_ITS | Clinical Summary ---
Author Organization [facility] 163 [facility] Address [address] [place] [address] Care Team Providers Care Orthopedics Pediatric Physician Name Role Phone No, Physician Primary Care Provider Allergies No known active allergies Medications No [...] 07/31/2021, 05/29/2021 Insurance FAVIOLA ALLEGIANCE Care Teams Orthopedics Pediatric Physician Relationship Specialty Start Date End Date No, Physician PCP - General 06/21/22
== END 2025-02-14 15:35 | disposition home or self-care (01) ==
LOC: ANHLAB 15:35
PROVIDERS: Visit Provider Internal Medicine Hematology & Oncology
DX: C7A.8 Other malignant neuroendocrine tumors (principal)
CPT/HCPCS: 36415; 80047; 80053

== ENCOUNTER 2025-08-14 15:37 | Outpatient (CLI) | payer OTHER, SELFPAY ==
[2025-08-14 15:51] LABS: Hematocrit 41.0 % (42.0-52.0); Hemoglobin 13.9 g/dL (14.0-18.0); Immature Granulocyte Percent A 0.2 % (0-0.5); Lymphocytes Absolute Auto 6.14 K/mm3 (0.9-3.2); Mean Corpuscular HGB Conc 33.9 g/dl (32-36); Mean Corpuscular Hemoglobin 32.7 pg (26-34); Mean Corpuscular Volume 96.5 fl (80-100); Nucleated Red Blood Cells Absolute Auto 0.000 K/mm3 (0.0-0.012); Nucleated Red Blood Cells Perc 0.0 % (0.0-0.2); Platelet Count Result 188 k/mm3 (150-375); Red Blood Count 4.25 M/mm3 (4.6-6.20); White Blood Count 9.1 K/mm3 (4.5-10.0)
[2025-08-14 15:55] LABS: Schistocytes None Seen
[2025-08-14 16:47] LABS: Alanine Aminotransferase 23 U/L (6-50); Albumin Level 4.2 g/dL (3.5-5.1); Alkaline Phosphatase 96 U/L (38-126); Anion Gap 6 mmol/L (4-12); Aspartate Amino Transferase 49 U/L (17-59); Bilirubin,Total 0.4 mg/dL (0.2-1.3); Blood Urea Nitrogen 22 mg/dL (9-20); Calcium 8.9 mg/dL (8.4-10.2); Carbon Dioxide 27 mmol/L (22-30); Chloride 102 mmol/L (98-107); Estimated Glomerular Filt Rate 59; Glucose 101 mg/dL (65-110); Potassium 4.4 mmol/L (3.4-5.0); Sodium 135 mmol/L (137-145); Total Protein 7.3 g/dL (6.3-8.2)
--- OUTSIDE RECORDS SUMMARY | 2025-08-14 18:27 | XMS_ITS | Clinical Summary ---
Author Organization [facility] [address] [facility] Address [address] [place] [address] Care Team Providers Care Director Translation Name Role Phone Tito Franco MD Primary Care Provider [phone] Allergies No known active allergies Medications TURMERIC ORAL Take by mouth daily Active mv-min/folic/K1/l ycopen/lutein (MEN 50 PLUS MULTIVITAMIN ORAL) Take by mouth daily 05/30/2021 Active Active Problems Problem Noted Date Diagnosed Date Adjustment disorder with mixed anxiety and depre ssed mood 08/27/2022 Elevated LDL cholesterol level 02/12/2021 CASTILLO (dyspnea on exertion) 02/12/2021 Elevated serum creatinine 02/12/2021 CLL (chronic lymphocytic leukemia) 01/22/2021 Assessment & Plan (03/13/2025 3:13 PM CDT): Follows with hematology for management; asymptomatic; no evidence of progression Continue to follow with q.6 months surveillance Mild anemia may be associated with CLL; monitor with CLL 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 Immunizations Immunization Administration Dates Next Due Influenza, Quadrivalent, Spl it, Intramuscular 08/28/2021,08/31/2019,09/02/2018 Influenza, Quadrivalent, Spl it, Preservative Free, Intramuscular 09/04/2023,08/28/2020,09/11/2017 Influenza, Trivalent, Preser vative Free, Intramuscular 09/07/2024 Pneumococcal Polysaccharide PPV23 09/23/2018 Tdap 09/13/2019 ZOSTER Recombinant 07/31/2021,05/29/2021 Surgical History Surgery Date Site/Laterality Comments COLON SURGERY 11/30/2013 - 11/29/2014 blocked intestine LUMBAR DISC SURGERY 11/30/1996 - 11/29/1997 N/A 1996 and 1997 VASECTOMY 11/30/1993 - 11/29/1994 TONSILLECTOMY 11/30/1966 - 11/29/1967 Medical History Medical History Date Comments Hyperlipidemia Cataract left eye Family History Medical History Relation Name Comments Colon cancer Father Migraines Mother Non-Hodgkin's Lymphoma Mother Stroke Paternal Grandfather Diabetes Paternal Grandmother Relation Name Status Comments Brother Alive Father Mother Paternal Grandfather Paternal Grandmother Social History Tobacco Use Types Packs/Day Years Used Date Smoking Tobacco: Never AUDIT-C Answer Date Recorded Q1: How often do you have a drink containing alcohol? Never 03/02/2025 Q2: How many drinks containi ng alcohol do you have on a typical day when you are drinking? Patient does not drink Q3: How often do you have si x or more drinks on one occasion? Never 03/02/2025 PHQ-2 Answer Date Recorded PHQ-2 Total Score (If total score is 3 or more points, staff should administer the PHQ-9) 0 03/02/2025 Sex and Gender Information Value Date Recorded Sex Assigned at Not on file Legal Sex Male 12:14 PM CDT Gender Identity Not on file Sexual Orientation Not on file Obstetrics History Last Filed Vital Signs Vital Sign Reading Time Taken Comments Blood Pressure 126/82 03/02/2025 1:09 PM CDT Pulse 82 03/02/2025 1:09 PM CDT Temperature 36.8 C (98.2 F) 03/02/2025 1:09 PM CDT Respiratory Rate 18 03/02/2025 1:09 PM CDT Oxygen Saturation 97% 03/02/2025 1:09 PM CDT Inhaled Oxygen Concentration - - Weight 85.1 kg (187 lb 9.6 oz) 03/02/2025 1:09 P M CDT Height 171.5 cm (5' 7.5) 03/02/2025 1:09 PM CDT Body Mass Index 28.95 03/02/2025 1:09 PM CDT Plan of Treatment Health Maintenance Due Date Last Done Comments Pneumococcal vaccine 65+ (2 of 2 - PCV) 09/23/2019 09/23/2018 Covid-19 Vaccine (4 - 2024-2 6 season) 2025 11/09/2021, 03/17/2021, 02/24/2021 Influenza Vaccine (#1) 2025 , 09/04/2023, 08/28/2021, Additional history exists Depression Screening 03/02/2026 03/02/2025 Fall Risk Assessment 03/02/2026 03/02/2025 Well Visit 65+ 03/02/2026 03/02/2025 Prostate Cancer Screening-PSA 03/02/2027 03/02/2025 DTaP/Tdap/Td Vaccine (2 - Td or Tdap) 09/13/2029 09/13/2019 Colon Cancer Screening-Colonoscopy 10/16/20332022 Zoster Vaccine Completed 07/31/2021, 05/29/2021 Hepatitis B Screening Completed 03/02/2025 Hepatitis C Screening Completed 03/02/2025 Procedures Procedure Name Priority Date/Time Associated Diagnosis Comments HEPATITIS C ANTIBODY Routine 03/02/2025 1:56 PM CDT Encounter for hepatitis C screening test for low risk patient PSA SCREEN Routine 03/02/2025 1:56 PM CDT Screening PSA (prostate specific antigen) HM COLONOSCOPY Routine 10/16/2023 8:29 AM EXECUTIVE STAFF ASSISTANT from Last 3 Months or Most Recently Relevant to Health Maintenance Results * PSA screen (03/02/2025 1:56 PM CDT) PSA-Total 3.39 <=5.40 ng/mL Comment: Interpretive Data AGE SEX REFERENCE INTERVAL 0 minutes-150 years Female None 0 minutes-49 years Male None 50-59 years Male 0-3.90 60-69 years Male 0-5.40 70-79 years Male 0-6.20 80-150 years Male 0-6.20 The Leann PSA Total assay procedure was used. Results from different manufacturers or methods may not be comparable. Serial testing should be performed using the same method. Current interpretive data last revised 22. Testing performed by: [facility], [address] [place] [address], [place]., [address] Blood 03/02/2025 1:56 PM CDT 03/02/2025 8:12 PM CDT Tito Franco MD LAB BLOOD ORDERABLES Dania l Result [facility] ([facility]) [address] [facility] [place] [address] * Hepatitis C antibody Blood (03/02/2025 1:56 PM CDT) Hep C Ab Nonreactive Nonreactive Comment: Interpretive Data Nonreactive: Antibodies to HCV not detected. Does NOT exclude the possibility of recent exposure to HCV. Equivocal: Equivocal for HCV antibodies. Supplemental molecular testing will be automatically performed to determine infection status in accordance with current CDC screening recommendations. Reactive: Positive for HCV antibodies. This may represent current or past HCV infection. Supplemental molecular testing will be automatically performed to determine current infection status in accordance with current CDC screening recommendations. Interpretive data was last revised on 2020. Testing performed by: [facility], [address] [place] [address]., [address] Blood 03/02/2025 1:56 PM CDT 03/02/2025 8:12 PM CDT us Tito Franco MD LAB MICROBIOLOGY - GENERA L ORDERABLES Final Result [facility] ([facility]) 1 [facility] [place] [address] * HM COLONOSCOPY (10/16/2023 8:29 AM EXECUTIVE STAFF ASSISTANT) Historical Provider HEALTH MAINTENANCE Final Result from Last 3 Months or Most Recently Relevant to Health Maintenance Insurance CIGNA ALLEGIANCE CIGNA ALLEGIANCE Care Teams Director Translation Relationship Specialty Start Date End Date Tito Franco MD [address] [place] [address] PCP - General Family Medicine 03/02/25
--- OUTSIDE RECORDS SUMMARY | 2025-08-14 18:27 | XMS_ITS | Clinical Summary ---
Author Organization [facility] [employer] [place] Address [address] [place] [address] Care Team Providers Care Janitor And Cleaner Name Role Phone Betsy Rossi MD Primary Care Provider [phone] Allergies No known active allergies Medications multivit-min/FA/l [...] Encounters Date Type Department Care Team Description 07/18/2025 External Device Data STL ABSTRACTION Provider, Abstract 06/14/2025 External Device Data STL ABSTRACTION Provider, Abstract 06/14/2025 External Device Data STL ABSTRACTION Provider, Abstract 06/14/2025 External Device Data STL ABSTRACTION Provider, Abstract 06/13/2025 External Device Data STL ABSTRACTION Provider, Abstract 05/23/2025 External Device Data STL ABSTRACTION Provider, Abstract 05/16/2025 External Device Data STL ABSTRACTION Provider, Abstract [...] P M CDT Height 172.7 cm (5' 8) 07/22/2022 9:32 AM CDT Body Mass Index 28.31 07/22/2022 9:32 AM CDT Plan of Treatment Upcoming Encounters Date Type Department Care Team (Late st Contact Info) Description 08/23/2025 3:30 PM CDT Office Visit [facility] Oncology and Hematology [facility] [address] [facility] [address] [place] [address] Desmond Hawthorne MD [address] [place] [address] Health Maintenance Due Date Last Done Comments Pre-Diabetes and Diabetes Screening 1960 FIT-DNA Q 3 years 2004 Flex Sig/CT Colonography Q 5 years 2004 PNEUMOCOCCAL VACCINE 50+ YEA RS (2 of 2 - PCV) 09/23/2019 09/23/2018 FIT/FOBT Q 1 year 09/13/2020 09/13/2019 COLORECTAL SCREENING 04/15/2024 10/16/2023, 11/07/2019, 09/29/2019, Additional history exists Colorectal Cancer Screening 04/15/2024 Preventative Visit- Commercial 11/30/2024 INFLUENZA VACCINE (#1) 2025 4, 09/04/2023, 08/28/2021, Additional history exists DTAP/TDAP/TD VACCINES (2 - T d or Tdap) 09/13/2029 09/13/2019 RSV VACCINE (60+ or ) (1 - 1-dose 75+ series) 2034 ZOSTER VACCINE Completed 07/31/2021, 05/29/2021 Procedures Procedure Name Priority Date/Time Associated Diagnosis Comments COLONOSCOPY REPORT Routine 10/16/2023 11 :38 AM PIPELINE GANG SUPERVISOR POC OCCULT BLOOD 1 CARD Routine 09/13/2019 11:59 AM CDT Rectal bleeding from Last 3 Months or Most Recently Relevant to Health Maintenance Results * COLONOSCOPY REPORT (10/16/2023 11:38 AM PIPELINE GANG SUPERVISOR) us Desmond Hawthorne MD GI PROCEDURE ORDERABLES Final R esult * (ABNORMAL) POC OCCULT BLOOD 1 CARD (09/13/2019 11:59 AM CDT) OCCULT BLOOD 1 CARD POC Positive(A ) Negative [facility] [place] QC Pass Pass [facility] [place] C[place] NUM[place] POC [id number] [facility] [place] EXPIR[place] DATE POC 01/2020 [facility] [place] DEV[place] LOT NUMBER POC [id number] [facility] [place] EXPIRATION DATE POC 04/2022 [facility] [place] Stool STOOL SPECIMEN / Unknown 09/13/2019 11:59 AM CDT us Melida Zavala CRM SOLUTION ARCHITECT POINT OF CARE TESTING F inal Result [facility] CLIA# [id number] [address] [place] [address] from Last 3 Months or Most Recently Relevant to Health Maintenance Insurance ALLEGIANCE OPEN ACCESS ALLEGIANCE OPEN ACCESS * Guarantor: [employer] Account Type Relation to Patient Date of Phone Billing Address Corporate Employer ATTN: ELIZABETH JOYNER [address] [address] Advance Directives For more information, please contact: [phone] * Full Code (Latest Code Status on File) Date Activated Date Inactivated Comments 11/07/2019 11:56 AM 11/07/2019 5:42 PM Care Teams Janitor And Cleaner Relationship Specialty Start Date End Date Betsy Rossi MD [address] [place] [phone] PCP - General Family Practice 10/06/22
== END 2025-08-14 15:38 | disposition home or self-care (01) ==
LOC: ANHLAB 15:38
PROVIDERS: Visit Provider Internal Medicine Hematology & Oncology
DX: C7A.8 Other malignant neuroendocrine tumors (principal)
CPT/HCPCS: 36415; 80053; 85025; 86316